=== PATIENT | male | born 1980 | race American Indian/Alaskan Native ===

== ENCOUNTER 2019-01-27 04:39 | Emergency (ER) | payer MEDICAID ==
[2019-01-27] MEDS ORDERED: PERCOCET 5/325 PO STA (08:23)
--- NOTE | 2019-01-27 09:21 | Cat Scan Report ---
CT HEAD WITHOUT CONTRAST INDICATION : headache. TECHNIQUE: Axial imaging performed from the skull apex through the skull base without the use of con trast. Sagittal and coronal reformatted images. All CT scans at this location are performed using C T dose reduction for ALARA by means of automated exposure control. COMPARISON: None FINDINGS: Parenchyma: There is a large left epidural collection measuring up to 2.8 cm in thickness, 9.9 cm AP , and 7.6 cm craniocaudal. This collection is hypodense suggesting a more chronic collection with int ernal density measuring 17.5 Hounsfield units. There is significant mass effect on the left cerebral hemisphere with kdzp-yv-xsagv midline shift measuring 1.4 cm at the level of the frontal horns. The s uprasellar cistern is nearly effaced. The brain parenchyma demonstrates normal attenuation. There is no evidence for acute hemorrhage, mass or large area of acute ischemia. The posterior fossa and magdalena nts are unremarkable. Ventricles: The ventricles are compressed, left greater than right. A ventriculoperitoneal shunt in the right parietal region terminates in the left frontal horn. Bones: Left craniotomy changes are noted. No acute bony abnormality. Chronic left medial orbital wal l fracture is noted. Sinuses: Sinuses and mastoid air cells are clear. Soft tissues: Soft tissues including the orbits appear normal. IMPRESSION: Large left epidural collection as described above with significant mass effect on the lef t cerebral hemisphere and left to right midline shift measuring 1.4 cm. These findings were discussed with DAVIDE Larios in the emergency department at 0910 hours Eastern standard time. Neurosurgery cons ult was recommended. Signer Name: Tone Cerda Jr, MD Signed: 01/27/2019 9:16 AM Workstation Name: [id number]
[2019-01-27 09:30] VITALS: BP 164/107
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
--- NOTE | 2019-01-27 11:05 | Event Note ---
Date of service: 01/27/19 Face to Face: For this encounter I have reviewed the PA/LIBRARY INFORMATION TECHNICIAN documentation, treatment plan, medical decision making, and I had face to face time with this patient. Patient's CT shows he has a large fluid collection in the area of his previous epidural. Patient does have some midline shift which is not known if this is old or new. Patient will be sent to [facility] for reevaluation by the neurosurgery team.
== END 2019-01-27 12:01 | disposition other institution (70) ==
LOC: ED 04:39
DX: G93.89 Other specified disorders of brain (principal); R51 Headache; F17.200 Nicotine dependence, unspecified, uncomplicated; F12.10 Cannabis abuse, uncomplicated
CPT/HCPCS: 70450